=== PATIENT | male | born 1960 | race Two or more races ===

== ENCOUNTER 2018-01-22 15:35 | Inpatient (IN) | payer MEDICAID, OTHER ==
[~2018-01-22] VITALS: Ht 162.6 cm; Wt 60.1 kg
[2018-01-22 16:30] VITALS: BP 201/96
--- NOTE | 2018-01-22 16:55 | Diagnostic Imaging Report ---
Indication: Altered mental status Technique: Contiguous 5 mm thick transaxial imaging of the head obtained in a Siemens Sensation [address] scanner. Soft tissue and bone windows generated. Automatic Exposure Control was utilized. Total Dose length Product (DLP): 1463.[address] Dose Index Volume (CTDIvol): 70.38 mGy Comparison: none Findings: There is moderate prominence of the ventricles, basal cisterns, and cerebral sulci consistent with atrophy. Moderate, nonspecific, white matter hypoattenuation is noted throughout the brain consistent with chronic small vessel disease. There is no midline shift, edema, acute hemorrhage, mass effect, or abnormal extra-axial fluid collections. Bones and extra osseous soft tissues are unremarkable. Impression: No acute intracranial bleed, mass effect or edema. Moderate atrophy of the brain. Evidence of chronic small vessel disease involving white matter tracts. The CT scanner at [facility] is accredited by the [employer] and the scans are performed using dose optimization techniques as appropriate to a performed exam including Automatic Exposure control.
[2018-01-22 17:00] LABS: HEMATOCRIT 40.6 % (42.0-52.0); HEMOGLOBIN 13.6 G/DL (14.2-18.0); MEAN CORPUSCULAR VOLUME 86 FL (80-99); PLATELET COUNT 150 K/UL (150-450); RED BLOOD COUNT 4.73 M/UL (4.70-6.10); RED CELL DISTRIBUTION WIDTH 11.8 % (11.6-14.8); WHITE BLOOD COUNT 10.9 K/UL (4.8-10.8)
[2018-01-22 17:02] LABS: ANION GAP 19 mmol/L (5-15); BLOOD UREA NITROGEN 61 mg/dL (7-18); CALCIUM 9.7 MG/DL (8.5-10.1); CARBON DIOXIDE 19 MMOL/L (21-32); CHLORIDE 103 MMOL/L (98-107); CREATININE 3.9 MG/DL (0.55-1.30); SODIUM 141 MMOL/L (136-145)
[2018-01-22 17:04] LABS: APPEARANCE,URINE SLIGHTLY CLOUDY; BILIRUBIN, URINE NEGATIVE (NEGATIVE); COLOR,URINE PALE YELLOW; GLUCOSE, URINE (UA) 4+ (NEGATIVE); KETONES,URINE 1+ (NEGATIVE); LEUKOCYTE ESTERASE ,URINE NEGATIVE (NEGATIVE); NITRITE,URINE NEGATIVE (NEGATIVE); PH,URINE 5 (4.5-8.0); PROTEIN,URINE 3+ (NEGATIVE); UROBILINOGEN,URINE NORMAL MG/DL (0.0-1.0)
[2018-01-22 17:05] LABS: ALANINE AMINOTRANSFERASE 19 U/L (12-78); ALBUMIN 4.2 G/DL (3.4-5.0); ALBUMIN/GLOBULIN RATIO 0.8 (1.0-2.7); ALKALINE PHOSPHATASE 142 U/L (46-116); ASPARTATE AMINO TRANSFERASE 9 U/L (15-37); BILIRUBIN,TOTAL 0.7 MG/DL (0.2-1.0)
[2018-01-22 17:30] VITALS: BP 191/111
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
[2018-01-22 18:00] VITALS: BP 194/97
[2018-01-22 19:48] VITALS: BP 154/76
[2018-01-22] MEDS ORDERED: Insulin Human Regular 100units/ml 3ml IV ONE (20:00)
[2018-01-22 20:30] VITALS: BP 138/83
[2018-01-22] MEDS: NovoLOG Insulin Flexpen SUBQ SCH (21:52)
[2018-01-23] VITALS: BP 129/68
[2018-01-23 04:00] VITALS: BP 142/85
[2018-01-23] MEDS: NovoLOG Insulin Flexpen SUBQ SCH ×4 (05:38→23:11)
[2018-01-23 06:26] LABS: BASOPHILS % (AUTO) 0.8 % (0.0-2.0); EOSINOPHILS % (AUTO) 0.1 % (0.0-3.0); HEMATOCRIT 40.9 % (42.0-52.0); HEMOGLOBIN 13.6 G/DL (14.2-18.0); MEAN CORPUSCULAR VOLUME 86 FL (80-99); NEUTROPHILS % (AUTO) 77.1 % (45.0-75.0); PLATELET COUNT 240 K/UL (150-450); RED BLOOD COUNT 4.76 M/UL (4.70-6.10)
[2018-01-23 06:29] LABS: ANION GAP 15 mmol/L (5-15); BLOOD UREA NITROGEN 55 mg/dL (7-18); CALCIUM 9.4 MG/DL (8.5-10.1); CARBON DIOXIDE 25 MMOL/L (21-32); CHLORIDE 115 MMOL/L (98-107); SODIUM 155 MMOL/L (136-145)
[2018-01-23 08:00] VITALS: BP 164/100
[2018-01-23] MEDS: Thiamine 100mg tab ORAL SCH (08:45)
[2018-01-23] MEDS: chlordiazePOXIDE 25mg Cap ORAL SCH ×2 (10:05→16:56)
--- NOTE | 2018-01-23 11:56 | Diagnostic Imaging Report ---
Indication: Acute renal failure Technique: Grayscale and duplex images of the kidneys, retroperitoneum, and bladder were obtained. Comparison: none Findings: Right kidney measures 9.6 cm in length. Left kidney measures 10.1 cm in length. Both kidneys demonstrate normal echogenicity. No hydronephrosis. No focal abnormality. Normal inferior vena cava. Bladder is distended, prevoid volume 2 96 mL. Patient had no urge to void so no postvoid images available. Impression: negative.
[2018-01-23 12:00] VITALS: BP 163/96
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
--- NOTE | 2018-01-23 15:44 | Cardiology Report ---
APPROVED REPORT EKG Measurement Heart [id number] Normal sinus rhythm Left axis deviation Incomplete right bundle branch block Inferior infarct, age undetermined T wave abnormality, consider lateral ischemia Prolonged QT Abnormal ECG
[2018-01-23 16:00] VITALS: BP 159/96
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
[2018-01-23 20:00] VITALS: BP 145/94
[2018-01-24] VITALS: BP 137/86
[2018-01-24] MEDS: chlordiazePOXIDE 25mg Cap ORAL SCH ×3 (01:45→17:55)
[2018-01-24 04:00] VITALS: BP 138/56
[2018-01-24] MEDS: NovoLOG Insulin Flexpen SUBQ SCH ×4 (06:16→20:24)
[2018-01-24 07:53] LABS: ANION GAP 12 mmol/L (5-15); BLOOD UREA NITROGEN 52 mg/dL (7-18); CARBON DIOXIDE 25 MMOL/L (21-32); CHLORIDE 111 MMOL/L (98-107); CREATININE 2.6 MG/DL (0.55-1.30); EOSINOPHILS % (AUTO) 1.8 % (0.0-3.0); HEMATOCRIT 43.2 % (42.0-52.0); HEMOGLOBIN 13.9 G/DL (14.2-18.0); LYMPHOCYTES % (AUTO) 18.3 % (20.0-45.0); MEAN CORPUSCULAR VOLUME 88 FL (80-99); MONOCYTES % (AUTO) 5.3 % (1.0-10.0); NEUTROPHILS % (AUTO) 73.7 % (45.0-75.0); PLATELET COUNT 252 K/UL (150-450); RED BLOOD COUNT 4.93 M/UL (4.70-6.10); RED CELL DISTRIBUTION WIDTH 12.4 % (11.6-14.8); SODIUM 148 MMOL/L (136-145); WHITE BLOOD COUNT 13.8 K/UL (4.8-10.8)
[2018-01-24 08:00] VITALS: BP 118/69
--- NOTE | 2018-01-24 08:53 | Nephrology Progress Note ---
Assessment/Plan Assessment/Plan A/P 1) MUKUL on CKD??- Cr continues to improve with hydration - renal Us negative - avoid nephrotoxins 2) DM- elevated glucose per PCP 3) Hypernatremia- continue 1/2 NS hypotonic solution. Na has improved to 148 4) alcohol Dependancy- thiamine and folate Subjective Date patient seen: Jan 24, 2018 Time patient seen: 08:51 ROS Limited/Unobtainable: No Allergies: Coded Allergies: No Known Allergies (Unverified , 01/22/18) All Systems: reviewed and negative except above Subjective Patient says he is feeling better. No complaints Objective Last 24 Hour Vital Signs Date Time Temp Pulse Resp B/P (MAP) Pulse Ox O2 Delivery O2 Flow Rate FiO2 01/24/18 08:00 96.3 91 19 118/69 (85) 100 96.3 01/24/18 04:00 78 01/24/18 04:00 98.2 75 20 138/56 (83) 98 98.2 01/24/18 00:00 98.1 87 16 137/86 (103) 99 98.1 01/24/18 00:00 67 01/23/18 21:00 Room Air 01/23/18 20:00 83 01/23/18 20:00 98.2 84 19 145/94 (111) 99 98.2 01/23/18 16:56 159/96 01/23/18 16:00 71 01/23/18 16:00 97.7 86 20 159/96 (117) 97 97.7 01/23/18 12:00 85 01/23/18 12:00 97.7 84 20 163/96 (118) 97 97.7 01/23/18 09:00 Room Air Intake and Output 01/23/18 01/24/18 19:00 07:00 Intake Total 360 ml Balance 360 ml Intake Oral 360 ml # Voids 2 2 Laboratory Tests 01/24/18 07:15: White Blood Count 13.8H, Red Blood Count 4.93, Hemoglobin 13.9L, Hematocrit 43.2 , Mean Corpuscular Volume 88, Mean Corpuscular Hemoglobin 28.2, Mean Corpuscular Hemoglobin Concent 32.2, Red Cell Distribution Width 12.4, Platelet Count 252, Mean Platelet Volume 7.5, Neutrophils (%) (Auto) 73.7, Lymphocytes (% ) (Auto) 18.3L, Monocytes (%) (Auto) 5.3, Eosinophils (%) (Auto) 1.8, Basophils (%) (Auto) 1.0, Sodium Level 148H, Potassium Level 4.0, Chloride Level 111H, Carbon Dioxide Level 25, Anion Gap 12, Blood Urea Nitrogen 52H, Creatinine 2.6H , Estimat Glomerular Filtration Rate 25.7, Glucose Level 320H, Calcium Level 9.0 Height (Feet): 5 Height (Inches): 4.00 Weight (Pounds): 150 General Appearance: WD/WN, no apparent distress EENT: PERRL/EOMI Neck: non-tender, normal alignment Cardiovascular: normal peripheral pulses, normal rate Respiratory/Chest: lungs clear, normal breath sounds Abdomen: normal bowel sounds, non tender Edema: no edema noted Arm (L), no edema noted Arm (R), no edema noted Leg (L), no edema noted Leg (R), no edema noted Pedal (L), no edema noted Pedal (R), no edema noted Generalized Aleksey Oconnor MD Jan 24, 2018 08:53
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
[2018-01-24] MEDS: Thiamine 100mg tab ORAL SCH (09:31)
[2018-01-24 12:00] VITALS: BP 148/91
[2018-01-24 16:00] VITALS: BP 131/87
[2018-01-24 20:00] VITALS: BP 136/80
[2018-01-25] VITALS: BP 108/55
[2018-01-25] MEDS: chlordiazePOXIDE 25mg Cap ORAL SCH ×3 (01:02→16:51)
[2018-01-25 04:00] VITALS: BP 117/58
[2018-01-25] MEDS: NovoLOG Insulin Flexpen SUBQ SCH ×4 (06:13→20:29)
[2018-01-25 08:00] VITALS: BP 117/65
[2018-01-25] MEDS: Thiamine 100mg tab ORAL SCH (08:37)
--- NOTE | 2018-01-25 08:41 | Nephrology Progress Note ---
Assessment/Plan Assessment/Plan A/P 1) MUKUL on CKD??- Cr improving. AM labs pending. OK for DC from renal point pending am lab results - renal Us negative 2) DM- improved. Stable 3) Hypernatremia- continue 1/2 NS hypotonic solution. AM labs pending 4) alcohol Dependancy- thiamine and folate Subjective Date patient seen: Jan 25, 2018 Time patient seen: 08:38 ROS Limited/Unobtainable: No Allergies: Coded Allergies: No Known Allergies (Unverified , 01/22/18) All Systems: reviewed and negative except above Subjective Patient says he is feeling better. Objective Last 24 Hour Vital Signs Date Time Temp Pulse Resp B/P (MAP) Pulse Ox O2 Delivery O2 Flow Rate FiO2 01/25/18 04:00 97.6 80 17 117/58 (77) 97 97.6 01/25/18 00:00 98.1 76 18 108/55 (72) 96 98.1 01/24/18 21:00 Room Air 01/24/18 20:00 97.6 82 19 136/80 (98) 99 97.6 01/24/18 16:00 98.1 91 18 131/87 (102) 97 98.1 01/24/18 12:00 97.4 73 19 148/91 (110) 99 97.4 Intake and Output 01/24/18 01/25/18 19:00 07:00 Intake Total 375 ml Balance 375 ml IV Total 375 ml # Voids 3 2 # Bowel Movements 2 1 Height (Feet): 5 Height (Inches): 4.00 Weight (Pounds): 150 General Appearance: WD/WN, no apparent distress Neck: non-tender, normal alignment Cardiovascular: normal rate, regular rhythm Respiratory/Chest: lungs clear, normal breath sounds Abdomen: non tender, soft Edema: no edema noted Arm (L), no edema noted Arm (R), no edema noted Leg (L), no edema noted Leg (R), no edema noted Pedal (L), no edema noted Pedal (R), no edema noted Generalized Aleksey Oconnor MD Jan 25, 2018 08:41
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
[2018-01-25 09:14] LABS: BASOPHILS % (AUTO) 0.8 % (0.0-2.0); EOSINOPHILS % (AUTO) 2.9 % (0.0-3.0); HEMATOCRIT 39.6 % (42.0-52.0); HEMOGLOBIN 12.9 G/DL (14.2-18.0); LYMPHOCYTES % (AUTO) 16.4 % (20.0-45.0); MEAN CORPUSCULAR VOLUME 87 FL (80-99); MONOCYTES % (AUTO) 5.2 % (1.0-10.0); NEUTROPHILS % (AUTO) 74.6 % (45.0-75.0); PLATELET COUNT 223 K/UL (150-450); RED BLOOD COUNT 4.57 M/UL (4.70-6.10); WHITE BLOOD COUNT 11.4 K/UL (4.8-10.8)
[2018-01-25 09:29] LABS: ANION GAP 7 mmol/L (5-15); BLOOD UREA NITROGEN 45 mg/dL (7-18); CALCIUM 8.7 MG/DL (8.5-10.1); CARBON DIOXIDE 26 MMOL/L (21-32); CHLORIDE 105 MMOL/L (98-107); CREATININE 2.4 MG/DL (0.55-1.30); PHOSPHORUS 2.3 MG/DL (2.5-4.9); POTASSIUM 3.9 MMOL/L (3.5-5.1); SODIUM 138 MMOL/L (136-145)
[2018-01-25 12:00] VITALS: BP 128/71
[2018-01-25 16:00] VITALS: BP 121/69
[2018-01-25 20:00] VITALS: BP 141/83
[2018-01-26] MEDS: chlordiazePOXIDE 25mg Cap ORAL SCH ×3 (01:45→17:09)
[2018-01-26 04:00] VITALS: BP 112/56
[2018-01-26] MEDS: NovoLOG Insulin Flexpen SUBQ SCH ×4 (06:22→21:52)
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
[2018-01-26] MEDS: Thiamine 100mg tab ORAL SCH (07:59)
[2018-01-26 08:00] VITALS: BP 139/79
--- NOTE | 2018-01-26 08:31 | Nephrology Progress Note ---
Assessment/Plan Assessment/Plan A/P 1) MUKUL on CKD??- Cr improving down to 2.4 - renal Us negative - OK for DC from renal point 2) DM- improved. Stable 3) Hypernatremia- resolved, DC IVFs 4) alcohol Dependancy- thiamine and folate 5) HypoMg/Phos- being replaced today Subjective Date patient seen: Jan 26, 2018 Time patient seen: 08:30 ROS Limited/Unobtainable: No Allergies: Coded Allergies: No Known Allergies (Unverified , 01/22/18) All Systems: reviewed and negative except above Subjective Patient without complaints resting well Objective Last 24 Hour Vital Signs Date Time Temp Pulse Resp B/P (MAP) Pulse Ox O2 Delivery O2 Flow Rate FiO2 01/26/18 04:00 112/56 (74) 01/25/18 21:00 Room Air 01/25/18 20:00 97.9 89 19 141/83 (102) 98 97.9 01/25/18 16:00 97.8 72 121/69 (86) 97.8 01/25/18 12:00 98.1 84 18 128/71 (90) 98 98.1 01/25/18 09:00 Room Air Intake and Output 01/25/18 01/26/18 19:00 07:00 Intake Total 1150 ml 120 ml Balance 1150 ml 120 ml Intake Oral 120 ml IV Total 600 ml Other 550 ml # Voids 3 2 Laboratory Tests 01/25/18 09:00: White Blood Count 11.4H, Red Blood Count 4.57L, Hemoglobin 12.9L, Hematocrit 39.6L, Mean Corpuscular Volume 87, Mean Corpuscular Hemoglobin 28.1, Mean Corpuscular Hemoglobin Concent 32.5, Red Cell Distribution Width 12.0, Platelet Count 223, Mean Platelet Volume 6.3L, Neutrophils (%) (Auto) 74.6, Lymphocytes ( %) (Auto) 16.4L, Monocytes (%) (Auto) 5.2, Eosinophils (%) (Auto) 2.9, Basophils (%) (Auto) 0.8, Sodium Level 138, Potassium Level 3.9, Chloride Level 105, Carbon Dioxide Level 26, Anion Gap 7, Blood Urea Nitrogen 45H, Creatinine 2.4H, Estimat Glomerular Filtration Rate 28.1, Glucose Level 324H, Calcium Level 8.7, Phosphorus Level 2.3L, Magnesium Level 1.7L Height (Feet): 5 Height (Inches): 4.00 Weight (Pounds): 150 General Appearance: WD/WN, no apparent distress EENT: PERRL/EOMI Neck: non-tender, normal alignment Cardiovascular: normal rate, regular rhythm Respiratory/Chest: lungs clear, normal breath sounds Abdomen: non tender, soft Edema: no edema noted Arm (L), no edema noted Arm (R), no edema noted Leg (L), no edema noted Leg (R), no edema noted Pedal (L), no edema noted Pedal (R), no edema noted Generalized Aleksey Oconnor MD Jan 26, 2018 08:31
[2018-01-26 09:44] LABS: ANION GAP 10 mmol/L (5-15); BLOOD UREA NITROGEN 52 mg/dL (7-18); CALCIUM 8.5 MG/DL (8.5-10.1); CARBON DIOXIDE 23 MMOL/L (21-32); CHLORIDE 105 MMOL/L (98-107); CREATININE 2.4 MG/DL (0.55-1.30); POTASSIUM 4.3 MMOL/L (3.5-5.1); SODIUM 138 MMOL/L (136-145)
[2018-01-26] MEDS ORDERED: Sodium Phosphate 15 MM in NS 275 ML IVPB ONE (10:00)
[2018-01-26] MEDS: Magnesium Oxide 400mg tab ORAL SCH ×3 (10:23→17:09)
[2018-01-26 12:00] VITALS: BP 140/80
[2018-01-26 16:00] VITALS: BP 129/76
[2018-01-26 20:00] VITALS: BP 130/81
[2018-01-26] MEDS: Zolpidem 5mg tab ORAL PRN (21:51)
[2018-01-27] VITALS: BP 128/74
[2018-01-27] MEDS: chlordiazePOXIDE 25mg Cap ORAL SCH ×3 (01:44→17:14)
[2018-01-27 04:00] VITALS: BP 143/82
[2018-01-27] MEDS: NovoLOG Insulin Flexpen SUBQ SCH ×4 (06:21→20:41)
[2018-01-27 08:00] VITALS: BP 121/73
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
[2018-01-27 08:25] LABS: CHLORIDE 104 MMOL/L (98-107)
[2018-01-27 08:27] LABS: ANION GAP 11 mmol/L (5-15); BLOOD UREA NITROGEN 52 mg/dL (7-18); CARBON DIOXIDE 26 MMOL/L (21-32); CREATININE 2.2 MG/DL (0.55-1.30); POTASSIUM 4.2 MMOL/L (3.5-5.1); SODIUM 141 MMOL/L (136-145)
[2018-01-27] MEDS: Magnesium Oxide 400mg tab ORAL SCH ×3 (08:39→17:14)
[2018-01-27] MEDS: Thiamine 100mg tab ORAL SCH (08:39)
--- NOTE | 2018-01-27 09:07 | Nephrology Progress Note ---
Assessment/Plan Assessment/Plan A/P 1) MUKUL on CKD 4- Cr slowly improving. Cr down to 2.2 - OK for DC from renal point 2) DM- improved. Stable 3) Hypernatremia- resolved 4) alcohol Dependancy- thiamine and folate 5) HypoMg/Phos- being replaced prn Subjective Date patient seen: Jan 27, 2018 Time patient seen: 09:02 ROS Limited/Unobtainable: No Allergies: Coded Allergies: No Known Allergies (Unverified , 01/22/18) All Systems: reviewed and negative except above Subjective Patient sitting up in bed. No overt distress Objective Last 24 Hour Vital Signs Date Time Temp Pulse Resp B/P (MAP) Pulse Ox O2 Delivery O2 Flow Rate FiO2 01/27/18 08:00 98.0 82 22 121/73 (89) 99 98.0 01/27/18 04:00 97.8 78 19 143/82 (102) 98 97.8 01/27/18 00:00 97.9 68 18 128/74 (92) 96 97.9 01/26/18 21:00 Room Air 01/26/18 20:00 98.6 85 18 130/81 (97) 100 98.6 01/26/18 16:00 98.6 85 18 129/76 (93) 97 98.6 01/26/18 12:00 98.0 81 19 140/80 (100) 100 98.0 Intake and Output 01/26/18 01/27/18 19:00 07:00 Intake Total 450 ml Balance 450 ml Intake Oral 450 ml # Voids 2 4 # Bowel Movements 3 Laboratory Tests 01/27/18 06:00: Sodium Level 141, Potassium Level 4.2, Chloride Level 104, Carbon Dioxide Level 26, Anion Gap 11, Blood Urea Nitrogen 52H, Creatinine 2.2H, Estimat Glomerular Filtration Rate 31.1, Glucose Level 269#H, Calcium Level 9.0 Height (Feet): 5 Height (Inches): 4.00 Weight (Pounds): 150 General Appearance: WD/WN, no apparent distress EENT: normal ENT inspection Neck: normal alignment, supple Cardiovascular: normal rate, regular rhythm Respiratory/Chest: lungs clear, normal breath sounds Abdomen: non tender, soft Edema: no edema noted Arm (L), no edema noted Arm (R), no edema noted Leg (L), no edema noted Leg (R), no edema noted Pedal (L), no edema noted Pedal (R), no edema noted Generalized Aleksey Oconnor MD Jan 27, 2018 09:07
[2018-01-27 12:00] VITALS: BP 146/67
[2018-01-27 16:00] VITALS: BP 138/85
[2018-01-27 20:00] VITALS: BP 133/89
[2018-01-27] MEDS: Zolpidem 5mg tab ORAL PRN (20:40)
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
[2018-01-28] VITALS: BP 111/64
[2018-01-28] MEDS: chlordiazePOXIDE 25mg Cap ORAL SCH ×3 (01:24→16:57)
[2018-01-28 04:00] VITALS: BP 145/86
[2018-01-28] MEDS: NovoLOG Insulin Flexpen SUBQ SCH ×4 (06:13→20:40)
[2018-01-28 07:55] LABS: ANION GAP 9 mmol/L (5-15); BLOOD UREA NITROGEN 49 mg/dL (7-18); CALCIUM 8.9 MG/DL (8.5-10.1); CARBON DIOXIDE 23 MMOL/L (21-32); CHLORIDE 105 MMOL/L (98-107); POTASSIUM 4.3 MMOL/L (3.5-5.1); SODIUM 137 MMOL/L (136-145)
[2018-01-28 08:04] VITALS: BP 125/78
[2018-01-28] MEDS: Magnesium Oxide 400mg tab ORAL SCH ×3 (08:08→16:57)
[2018-01-28] MEDS: Thiamine 100mg tab ORAL SCH (08:08)
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
--- NOTE | 2018-01-28 08:59 | Nephrology Progress Note ---
Assessment/Plan Assessment/Plan A/P 1) MUKUL on CKD 4- Cr slowly improving to 2 and BUN 49 - OK for DC from renal point 2) DM- improved. 3) Hypernatremia- resolved 4) Alcohol Dependancy- thiamine and folate 5) HypoMg/Phos- corrected Subjective Date patient seen: Jan 28, 2018 Time patient seen: 08:57 ROS Limited/Unobtainable: No Allergies: Coded Allergies: No Known Allergies (Unverified , 01/22/18) All Systems: reviewed and negative except above Subjective Patient without complaints Objective Last 24 Hour Vital Signs Date Time Temp Pulse Resp B/P (MAP) Pulse Ox O2 Delivery O2 Flow Rate FiO2 01/28/18 08:04 98.6 69 18 125/78 (94) 96 98.6 01/28/18 04:00 97.5 81 19 145/86 (105) 97 97.5 01/28/18 00:00 97.9 79 18 111/64 (80) 97 97.9 01/27/18 21:00 Room Air 01/27/18 20:00 97.9 82 19 133/89 (104) 98 97.9 01/27/18 16:00 96.6 72 21 138/85 (102) 97 96.6 01/27/18 12:00 97.7 77 22 146/67 (93) 99 97.7 01/27/18 09:00 Room Air Intake and Output 01/27/18 01/28/18 19:00 07:00 Intake Total 1440 ml 480 ml Balance 1440 ml 480 ml Intake Oral 1440 ml 480 ml # Voids 5 3 Laboratory Tests 01/28/18 06:54: Sodium Level 137, Potassium Level 4.3, Chloride Level 105, Carbon Dioxide Level 23, Anion Gap 9, Blood Urea Nitrogen 49H, Creatinine 2.0H, Estimat Glomerular Filtration Rate 34.7, Glucose Level 277H, Calcium Level 8.9, Magnesium Level 1.9 Height (Feet): 5 Height (Inches): 4.00 Weight (Pounds): 150 General Appearance: WD/WN, no apparent distress EENT: PERRL/EOMI, normal ENT inspection Cardiovascular: normal rate, regular rhythm Respiratory/Chest: lungs clear, normal breath sounds Abdomen: non tender, soft Edema: no edema noted Arm (L), no edema noted Arm (R), no edema noted Leg (L), no edema noted Leg (R), no edema noted Pedal (L), no edema noted Pedal (R), no edema noted Generalized Aleksey Oconnor MD Jan 28, 2018 08:59
[2018-01-28 11:23] VITALS: BP 122/85
[2018-01-28 16:00] VITALS: BP 154/92
[2018-01-28 20:00] VITALS: BP 147/84
[2018-01-29] VITALS: BP 137/71
[2018-01-29] MEDS: chlordiazePOXIDE 25mg Cap ORAL SCH ×3 (01:41→17:51)
[2018-01-29] MEDS: Zolpidem 5mg tab ORAL PRN (01:41)
[2018-01-29 04:00] VITALS: BP 126/75
[2018-01-29] MEDS: NovoLOG Insulin Flexpen SUBQ SCH ×4 (06:20→21:43)
[2018-01-29 08:00] VITALS: BP 124/76
[2018-01-29] MEDS: Magnesium Oxide 400mg tab ORAL SCH ×3 (08:42→17:51)
[2018-01-29] MEDS: Thiamine 100mg tab ORAL SCH (08:42)
--- NOTE | 2018-01-29 08:43 | Nephrology Progress Note ---
Assessment/Plan Assessment/Plan A/P 1) MUKUL on CKD 4- Cr 2 and BUN 49 - AM labs pending 2) DM- improved. 3) Hypernatremia- resolved 4) Alcohol Dependancy- thiamine and folate 5) HypoMg/Phos- am labs pending Subjective Date patient seen: Jan 29, 2018 Time patient seen: 08:41 ROS Limited/Unobtainable: No Allergies: Coded Allergies: No Known Allergies (Unverified , 01/22/18) All Systems: reviewed and negative except above Subjective Patient without complaints, sleeping well Objective Last 24 Hour Vital Signs Date Time Temp Pulse Resp B/P (MAP) Pulse Ox O2 Delivery O2 Flow Rate FiO2 01/29/18 04:00 97.9 82 18 126/75 (92) 97.9 01/29/18 00:00 97.7 79 18 137/71 (93) 97.7 01/28/18 21:00 Room Air 01/28/18 20:00 97.0 85 18 147/84 (105) 97.0 01/28/18 16:23 154/92 01/28/18 16:00 96.6 78 18 154/92 (112) 100 96.6 01/28/18 11:23 97.8 85 18 122/85 (97) 96 97.8 01/28/18 09:00 Room Air Intake and Output 01/28/18 01/29/18 19:00 07:00 Intake Total 360 ml 240 ml Balance 360 ml 240 ml Intake Oral 360 ml 240 ml # Voids 2 5 Laboratory Tests 01/29/18 08:10: Sodium Level [Pending], Potassium Level [Pending], Chloride Level [Pending], Carbon Dioxide Level [Pending], Blood Urea Nitrogen [Pending], Creatinine [ Pending], Estimat Glomerular Filtration Rate [Pending], Glucose Level [Pending] , Calcium Level [Pending] Height (Feet): 5 Height (Inches): 4.00 Weight (Pounds): 150 General Appearance: WD/WN, no apparent distress EENT: normal ENT inspection Neck: normal alignment, supple Cardiovascular: normal rate, regular rhythm Respiratory/Chest: lungs clear, normal breath sounds Abdomen: non tender, soft Edema: no edema noted Arm (L), no edema noted Arm (R), no edema noted Leg (L), no edema noted Leg (R), no edema noted Pedal (L), no edema noted Pedal (R), no edema noted Generalized Aleksey Oconnor MD Jan 29, 2018 08:43
[2018-01-29 09:12] LABS: ANION GAP 8 mmol/L (5-15); BLOOD UREA NITROGEN 43 mg/dL (7-18); CALCIUM 9.1 MG/DL (8.5-10.1); CARBON DIOXIDE 25 MMOL/L (21-32); CHLORIDE 106 MMOL/L (98-107); CREATININE 2.3 MG/DL (0.55-1.30); POTASSIUM 4.2 MMOL/L (3.5-5.1); SODIUM 139 MMOL/L (136-145)
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
[2018-01-29 11:48] VITALS: BP 141/83
[2018-01-29 16:10] VITALS: BP 121/74
[2018-01-29 20:00] VITALS: BP 126/79
[2018-01-30] VITALS (7 sets, daily range): BP systolic 87–166; BP diastolic 56–94
[2018-01-30] MEDS: chlordiazePOXIDE 25mg Cap ORAL SCH ×3 (01:45→01:51)
[2018-01-30] MEDS: NovoLOG Insulin Flexpen SUBQ SCH ×4 (06:22→20:44)
[2018-01-30 07:11] LABS: ANION GAP 5 mmol/L (5-15); BLOOD UREA NITROGEN 38 mg/dL (7-18); CALCIUM 8.9 MG/DL (8.5-10.1); CARBON DIOXIDE 28 MMOL/L (21-32); CHLORIDE 105 MMOL/L (98-107); POTASSIUM 4.5 MMOL/L (3.5-5.1); SODIUM 138 MMOL/L (136-145)
--- NOTE | 2018-01-30 08:11 | Nephrology Progress Note ---
Assessment/Plan Assessment/Plan A/P 1) CKD 4- Cr stable at 2 - OK for DC from renal point 2) DM- stable 3) Hypernatremia- resolved 4) Alcohol Dependancy- thiamine and folate 5) HypoMg/Phos- resolved Subjective Date patient seen: Jan 30, 2018 Time patient seen: 08:09 ROS Limited/Unobtainable: No Allergies: Coded Allergies: No Known Allergies (Unverified , 01/22/18) All Systems: reviewed and negative except above Subjective Patient doing well. No distress Objective Last 24 Hour Vital Signs Date Time Temp Pulse Resp B/P (MAP) Pulse Ox O2 Delivery O2 Flow Rate FiO2 01/30/18 04:00 97.3 73 14 118/64 (82) 97 97.3 01/30/18 01:00 126/75 (92) 01/30/18 00:29 166/88 01/30/18 00:15 16 166/88 (114) 01/30/18 00:00 98.6 83 14 149/78 (101) 97 98.6 01/29/18 21:00 Room Air 01/29/18 20:00 97.7 89 15 126/79 (95) 95 97.7 01/29/18 16:10 97.8 86 18 121/74 (90) 97.8 01/29/18 11:48 96.4 77 18 141/83 (102) 99 96.4 01/29/18 09:00 Room Air Intake and Output 01/29/18 01/30/18 19:00 07:00 Intake Total 830 ml 30 ml Balance 830 ml 30 ml Intake Oral 480 ml Other 350 ml 30 ml # Voids 4 4 # Bowel Movements 1 Laboratory Tests 01/29/18 08:10: Sodium Level 139, Potassium Level 4.2, Chloride Level 106, Carbon Dioxide Level 25, Anion Gap 8, Blood Urea Nitrogen 43H, Creatinine 2.3H, Estimat Glomerular Filtration Rate 29.6, Glucose Level 289H, Calcium Level 9.1 01/30/18 06:05: Sodium Level 138, Potassium Level 4.5, Chloride Level 105, Carbon Dioxide Level 28, Anion Gap 5, Blood Urea Nitrogen 38H, Creatinine 2.0H, Estimat Glomerular Filtration Rate 34.7, Glucose Level 330H, Calcium Level 8.9 Height (Feet): 5 Height (Inches): 4.00 Weight (Pounds): 150 General Appearance: WD/WN, no apparent distress EENT: normal ENT inspection Neck: normal alignment, supple Cardiovascular: normal rate, regular rhythm Respiratory/Chest: lungs clear, normal breath sounds Abdomen: non tender, soft Edema: no edema noted Arm (L), no edema noted Arm (R), no edema noted Leg (L), no edema noted Leg (R), no edema noted Pedal (L), no edema noted Pedal (R), no edema noted Generalized Aleksey Oconnor MD Jan 30, 2018 08:11
[2018-01-30] MEDS: Magnesium Oxide 400mg tab ORAL SCH ×3 (08:18→18:24)
[2018-01-30] MEDS: Thiamine 100mg tab ORAL SCH (08:18)
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
--- NOTE | 2018-01-30 11:46 | General Progress Note ---
Assessment/Plan Status: stable Assessment/Plan encephalopathy due to alcohol Dementia the pt lacks capacity to leave ama cont librium will taper gradually prozac 20mg qam the pt lacks capacity to leave ama seroquel prn Subjective Date patient seen: Jan 30, 2018 Neurologic/Psychiatric: Reports: anxiety Allergies: Coded Allergies: No Known Allergies (Unverified , 01/22/18) Subjective the pt is confused and follows simple tasks Objective Last 24 Hour Vital Signs Date Time Temp Pulse Resp B/P (MAP) Pulse Ox O2 Delivery O2 Flow Rate FiO2 01/30/18 09:00 Room Air 01/30/18 08:00 97.9 85 16 87/56 (66) 100 97.9 01/30/18 04:00 97.3 73 14 118/64 (82) 97 97.3 01/30/18 01:00 126/75 (92) 01/30/18 00:29 166/88 01/30/18 00:15 16 166/88 (114) 01/30/18 00:00 98.6 83 14 149/78 (101) 97 98.6 01/29/18 21:00 Room Air 01/29/18 20:00 97.7 89 15 126/79 (95) 95 97.7 01/29/18 16:10 97.8 86 18 121/74 (90) 97.8 01/29/18 11:48 96.4 77 18 141/83 (102) 99 96.4 Intake and Output 01/29/18 01/30/18 19:00 07:00 Intake Total 830 ml 30 ml Balance 830 ml 30 ml Intake Oral 480 ml Other 350 ml 30 ml # Voids 4 4 # Bowel Movements 1 Laboratory Tests 01/30/18 06:05: Sodium Level 138, Potassium Level 4.5, Chloride Level 105, Carbon Dioxide Level 28, Anion Gap 5, Blood Urea Nitrogen 38H, Creatinine 2.0H, Estimat Glomerular Filtration Rate 34.7, Glucose Level 330H, Calcium Level 8.9 Height (Feet): 5 Height (Inches): 4.00 Weight (Pounds): 150 General Appearance: no apparent distress, alert, confused Josephine Blackwell MD Jan 30, 2018 11:46
--- NOTE | 2018-01-30 12:20 | General Progress Note ---
Progress Note Progress Note Mr. Rodgers is a 57 yo male, homeless, confused and hyperglycemic prompting his admission. He is not represented. The Committee is asked if it appropriate for him to be designated a hospice patient and sent to a snf. Mr. Rodgers while fragile due to his homeless status he does not have a terminal diagnosis with survival estimated to be less than 6 months. We do not feel it would be appropriate for him to be designated as having hospice status. Some other solution to his placement should be sought. Vasquez Sotelo M.D. Bioethics Chair Vasquez Sotelo MD Jan 30, 2018 12:20
[2018-01-30] MEDS: Zolpidem 5mg tab ORAL PRN (20:41)
[2018-01-31 04:00] VITALS: BP 145/93
[2018-01-31] MEDS: NovoLOG Insulin Flexpen SUBQ SCH ×5 (05:50→20:37)
[2018-01-31 06:45] LABS: ANION GAP 7 mmol/L (5-15); BLOOD UREA NITROGEN 32 mg/dL (7-18); CALCIUM 9.2 MG/DL (8.5-10.1); CARBON DIOXIDE 29 MMOL/L (21-32); CHLORIDE 106 MMOL/L (98-107); CREATININE 1.8 MG/DL (0.55-1.30); POTASSIUM 4.4 MMOL/L (3.5-5.1); SODIUM 142 MMOL/L (136-145)
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
[2018-01-31 08:00] VITALS: BP 109/67
[2018-01-31] MEDS: Thiamine 100mg tab ORAL SCH (08:08)
[2018-01-31] MEDS: Magnesium Oxide 400mg tab ORAL SCH ×3 (08:08→17:18)
--- NOTE | 2018-01-31 08:30 | Nephrology Progress Note ---
Assessment/Plan Assessment/Plan A/P 1) CKD 4- Cr down to 1.8 - PRN IVfs 2) DM- stable 3) Hypernatremia- resolved 4) Alcohol Dependancy- thiamine and folate Pending DC placement Subjective Date patient seen: Jan 31, 2018 Time patient seen: 08:29 ROS Limited/Unobtainable: Yes Allergies: Coded Allergies: No Known Allergies (Unverified , 01/22/18) Subjective Patient doing well. Much improved Objective Last 24 Hour Vital Signs Date Time Temp Pulse Resp B/P (MAP) Pulse Ox O2 Delivery O2 Flow Rate FiO2 01/31/18 04:00 97.0 76 20 145/93 (110) 100 97.0 01/30/18 21:00 Room Air 01/30/18 20:00 97.0 71 20 139/94 (109) 100 97.0 01/30/18 16:00 97.0 72 129/63 (85) 97.0 01/30/18 09:00 Room Air Intake and Output 01/30/18 01/31/18 19:00 07:00 Intake Total 1000 ml Balance 1000 ml Intake Oral 1000 ml # Voids 6 3 # Bowel Movements 1 Laboratory Tests 01/31/18 06:00: Sodium Level 142, Potassium Level 4.4, Chloride Level 106, Carbon Dioxide Level 29, Anion Gap 7, Blood Urea Nitrogen 32H, Creatinine 1.8H, Estimat Glomerular Filtration Rate 39.2, Glucose Level 186#H, Calcium Level 9.2 Height (Feet): 5 Height (Inches): 4.00 Weight (Pounds): 145 General Appearance: WD/WN, no apparent distress EENT: normal ENT inspection Neck: normal alignment, supple Cardiovascular: normal rate, regular rhythm Respiratory/Chest: lungs clear, normal breath sounds Abdomen: non tender, soft Pelvis: normal rectal exam, speculum exam normal Edema: no edema noted Arm (L), no edema noted Arm (R), no edema noted Leg (L), no edema noted Leg (R), no edema noted Pedal (L), no edema noted Pedal (R), no edema noted Generalized Aleksey Oconnor MD Jan 31, 2018 08:30
[2018-01-31 12:00] VITALS: BP_SYST 109; BP_SYST 126; BP_DIAS 55; BP_DIAS 86
[2018-01-31 16:00] VITALS: BP 123/76
[2018-01-31 20:00] VITALS: BP 146/83
--- NOTE | 2018-01-31 23:15 | General Progress Note ---
Assessment/Plan Status: stable, progressing Assessment/Plan encephalopathy due to alcohol Dementia the pt lacks capacity to leave ama cont librium will taper gradually prozac 20mg qam the pt lacks capacity to leave ama seroquel prn Subjective Date patient seen: Jan 31, 2018 Neurologic/Psychiatric: Reports: anxiety, depressed Allergies: Coded Allergies: No Known Allergies (Unverified , 01/22/18) Subjective the pt is confused and follows simple tasks the pt is calmer and not agitated Objective Last 24 Hour Vital Signs Date Time Temp Pulse Resp B/P (MAP) Pulse Ox O2 Delivery O2 Flow Rate FiO2 01/31/18 21:00 Room Air 01/31/18 20:00 97.7 81 19 146/83 (104) 97 97.7 01/31/18 16:00 97.6 87 20 123/76 (92) 99 97.6 01/31/18 12:00 97.7 83 18 126/86 (99) 95 97.7 01/31/18 09:00 Room Air 01/31/18 08:00 97.5 86 18 109/67 (81) 99 97.5 01/31/18 04:00 97.0 76 20 145/93 (110) 100 97.0 Intake and Output 01/30/18 01/31/18 19:00 07:00 Intake Total 1000 ml Balance 1000 ml Intake Oral 1000 ml # Voids 6 3 # Bowel Movements 1 Laboratory Tests 01/31/18 06:00: Sodium Level 142, Potassium Level 4.4, Chloride Level 106, Carbon Dioxide Level 29, Anion Gap 7, Blood Urea Nitrogen 32H, Creatinine 1.8H, Estimat Glomerular Filtration Rate 39.2, Glucose Level 186#H, Calcium Level 9.2 Height (Feet): 5 Height (Inches): 4.00 Weight (Pounds): 145 General Appearance: no apparent distress, alert, confused Josephine Blackwell MD Jan 31, 2018 23:15
[2018-02-01] VITALS: BP_SYST 133; BP_SYST 140; BP_DIAS 80; BP_DIAS 85
[2018-02-01] MEDS: NovoLOG Insulin Flexpen SUBQ SCH ×4 (06:41→21:08)
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
[2018-02-01 08:00] VITALS: BP 134/79
--- NOTE | 2018-02-01 08:46 | Nephrology Progress Note ---
Assessment/Plan Assessment/Plan A/P 1) CKD 4- Cr down to 1.8 - renal function stable. Check BMP 2x week 2) DM- stable 3) Hypernatremia- resolved 4) Alcohol Dependancy- thiamine and folate Pending DC placement Subjective Date patient seen: Feb 01, 2018 Time patient seen: 08:44 Allergies: Coded Allergies: No Known Allergies (Unverified , 01/22/18) Subjective Patient stable Objective Last 24 Hour Vital Signs Date Time Temp Pulse Resp B/P (MAP) Pulse Ox O2 Delivery O2 Flow Rate FiO2 02/01/18 04:00 18 02/01/18 00:00 97.6 82 20 133/85 (101) 96 97.6 01/31/18 21:00 Room Air 01/31/18 20:00 97.7 81 19 146/83 (104) 97 97.7 01/31/18 16:00 97.6 87 20 123/76 (92) 99 97.6 01/31/18 12:00 97.7 83 18 126/86 (99) 95 97.7 01/31/18 09:00 Room Air Intake and Output 01/31/18 02/01/18 19:00 07:00 Intake Total 480 ml 240 ml Balance 480 ml 240 ml Intake Oral 480 ml 240 ml # Voids 2 2 Height (Feet): 5 Height (Inches): 4.00 Weight (Pounds): 145 Aleksey Oconnor MD Feb 01, 2018 08:46
[2018-02-01] MEDS: Magnesium Oxide 400mg tab ORAL SCH ×3 (08:51→18:17)
[2018-02-01] MEDS: Thiamine 100mg tab ORAL SCH (08:51)
[2018-02-01 12:00] VITALS: BP 141/85
--- NOTE | 2018-02-01 12:02 | General Progress Note ---
Assessment/Plan Assessment/Plan encephalopathy due to alcohol Dementia the pt lacks capacity to leave ama seroquel 25mg tid the pt lacks capacity to leave ama seroquel prn Subjective Neurologic/Psychiatric: Reports: anxiety, depressed, emotional problems Allergies: Coded Allergies: No Known Allergies (Unverified , 01/22/18) Subjective the pt is confused and more agitated Objective Last 24 Hour Vital Signs Date Time Temp Pulse Resp B/P (MAP) Pulse Ox O2 Delivery O2 Flow Rate FiO2 02/01/18 09:00 Room Air 02/01/18 08:00 98.1 90 20 134/79 (97) 100 98.1 02/01/18 04:00 18 02/01/18 00:00 97.6 82 20 133/85 (101) 96 97.6 01/31/18 21:00 Room Air 01/31/18 20:00 97.7 81 19 146/83 (104) 97 97.7 01/31/18 16:00 97.6 87 20 123/76 (92) 99 97.6 Intake and Output 01/31/18 02/01/18 19:00 07:00 Intake Total 480 ml 240 ml Balance 480 ml 240 ml Intake Oral 480 ml 240 ml # Voids 2 2 Height (Feet): 5 Height (Inches): 4.00 Weight (Pounds): 145 Josephine Blackwell MD Feb 01, 2018 12:02
[2018-02-01 16:00] VITALS: BP 134/85
[2018-02-01 20:00] VITALS: BP 139/82
[2018-02-02 04:00] VITALS: BP 136/88
[2018-02-02 05:50] LABS: ANION GAP 7 mmol/L (5-15); BLOOD UREA NITROGEN 28 mg/dL (7-18); CALCIUM 8.9 MG/DL (8.5-10.1); CARBON DIOXIDE 31 MMOL/L (21-32); CHLORIDE 104 MMOL/L (98-107); CREATININE 2.1 MG/DL (0.55-1.30); POTASSIUM 4.5 MMOL/L (3.5-5.1); SODIUM 142 MMOL/L (136-145)
[2018-02-02] MEDS: NovoLOG Insulin Flexpen SUBQ SCH ×5 (06:03→20:36)
[2018-02-02 08:00] VITALS: BP 138/83
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
[2018-02-02] MEDS: Thiamine 100mg tab ORAL SCH (08:59)
[2018-02-02] MEDS: Magnesium Oxide 400mg tab ORAL SCH ×3 (08:59→17:23)
--- NOTE | 2018-02-02 09:07 | Nephrology Progress Note ---
Assessment/Plan Assessment/Plan A/P 1) CKD 4- Cr 1.9-2 - renal function stable. Check BMP 2x week - encourage po fluids 2) DM- stable 3) Hypernatremia- resolved 4) Alcohol Dependancy- thiamine and folate Subjective Allergies: Coded Allergies: No Known Allergies (Unverified , 01/22/18) Subjective Patient stable. Awaiting DC to [facility] Objective Last 24 Hour Vital Signs Date Time Temp Pulse Resp B/P (MAP) Pulse Ox O2 Delivery O2 Flow Rate FiO2 02/02/18 04:00 97.0 80 19 136/88 (104) 98 97.0 02/01/18 21:00 Room Air 02/01/18 20:00 97.3 76 19 139/82 (101) 98 97.3 02/01/18 16:00 97.5 95 19 134/85 (101) 100 97.5 02/01/18 12:00 97.2 82 18 141/85 (103) 98 97.2 Intake and Output 02/01/18 02/02/18 19:00 07:00 Intake Total 600 ml 450 ml Balance 600 ml 450 ml Intake Oral 600 ml 450 ml # Voids 3 3 Laboratory Tests 02/02/18 04:32: Sodium Level 142, Potassium Level 4.5, Chloride Level 104, Carbon Dioxide Level 31, Anion Gap 7, Blood Urea Nitrogen 28H, Creatinine 2.1H, Estimat Glomerular Filtration Rate 32.8, Glucose Level 271H, Calcium Level 8.9 Height (Feet): 5 Height (Inches): 4.00 Weight (Pounds): 145 Aleksey Oconnor MD Feb 02, 2018 09:07
[2018-02-02 12:00] VITALS: BP 136/83
--- NOTE | 2018-02-02 14:11 | General Progress Note ---
Assessment/Plan Assessment/Plan encephalopathy due to alcohol Dementia the pt lacks capacity to leave ama seroquel 50mg tid the pt lacks capacity to leave ama seroquel prn Subjective Date patient seen: Feb 02, 2018 Neurologic/Psychiatric: Reports: anxiety, depressed, emotional problems Allergies: Coded Allergies: No Known Allergies (Unverified , 01/22/18) Subjective the pt is confused and more agitated Objective Last 24 Hour Vital Signs Date Time Temp Pulse Resp B/P (MAP) Pulse Ox O2 Delivery O2 Flow Rate FiO2 02/02/18 09:00 Room Air 02/02/18 08:00 97.3 87 19 138/83 (101) 100 97.3 02/02/18 04:00 97.0 80 19 136/88 (104) 98 97.0 02/01/18 21:00 Room Air 02/01/18 20:00 97.3 76 19 139/82 (101) 98 97.3 02/01/18 16:00 97.5 95 19 134/85 (101) 100 97.5 Intake and Output 02/01/18 02/02/18 19:00 07:00 Intake Total 600 ml 450 ml Balance 600 ml 450 ml Intake Oral 600 ml 450 ml # Voids 3 3 Laboratory Tests 02/02/18 04:32: Sodium Level 142, Potassium Level 4.5, Chloride Level 104, Carbon Dioxide Level 31, Anion Gap 7, Blood Urea Nitrogen 28H, Creatinine 2.1H, Estimat Glomerular Filtration Rate 32.8, Glucose Level 271H, Calcium Level 8.9 Height (Feet): 5 Height (Inches): 4.00 Weight (Pounds): 145 General Appearance: no apparent distress, alert, confused Josephine Blackwell MD Feb 02, 2018 14:11
[2018-02-02 16:00] VITALS: BP 125/71
[2018-02-02] MEDS: DiphenhydrAMINE 50mg/ml Inj IM PRN (18:22)
[2018-02-02] MEDS: LORazepam Inj 2mg/ml 1ml IM PRN (18:24)
[2018-02-02 20:00] VITALS: BP 125/73
[2018-02-03] VITALS: BP 157/80
[2018-02-03 04:00] VITALS: BP 121/67
[2018-02-03] MEDS: NovoLOG Insulin Flexpen SUBQ SCH ×4 (06:02→20:54)
[2018-02-03 08:00] VITALS: BP 131/81
[2018-02-03] MEDS: Magnesium Oxide 400mg tab ORAL SCH ×3 (08:36→17:12)
[2018-02-03] MEDS: LORazepam Inj 2mg/ml 1ml IM PRN ×2 (08:36→23:59)
[2018-02-03] MEDS: Thiamine 100mg tab ORAL SCH (08:37)
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
[2018-02-03 11:09] LABS: ANION GAP 4 mmol/L (5-15); BLOOD UREA NITROGEN 25 mg/dL (7-18); CALCIUM 8.9 MG/DL (8.5-10.1); CARBON DIOXIDE 32 MMOL/L (21-32); CHLORIDE 103 MMOL/L (98-107); CREATININE 2.2 MG/DL (0.55-1.30); POTASSIUM 4.3 MMOL/L (3.5-5.1); SODIUM 139 MMOL/L (136-145)
[2018-02-03 12:00] VITALS: BP 143/93
[2018-02-03 15:51] VITALS: BP 153/95
[2018-02-03] MEDS: Docusate 100mg/10ml Liq ORAL SCH ×2 (17:12→20:46)
[2018-02-03 20:00] VITALS: BP 142/75
[2018-02-04] VITALS: BP 147/80
[2018-02-04] MEDS: DiphenhydrAMINE 50mg/ml Inj IM PRN (00:15)
[2018-02-04 04:00] VITALS: BP 145/85
[2018-02-04] MEDS: NovoLOG Insulin Flexpen SUBQ SCH ×4 (06:14→20:09)
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
[2018-02-04 08:00] VITALS: BP 103/69
--- NOTE | 2018-02-04 08:30 | Nephrology Progress Note ---
Assessment/Plan Assessment/Plan A/P 1) CKD 4- Cr at 2.2 - fluid bolus today - encourage po fluids 2) DM- stable 3) Hypernatremia- resolved 4) Alcohol Dependancy- thiamine and folate Subjective Date patient seen: Feb 04, 2018 Time patient seen: 08:28 ROS Limited/Unobtainable: Yes Allergies: Coded Allergies: No Known Allergies (Unverified , 01/22/18) Subjective Awaiting DC to [facility] Objective Last 24 Hour Vital Signs Date Time Temp Pulse Resp B/P (MAP) Pulse Ox O2 Delivery O2 Flow Rate FiO2 02/04/18 04:00 97.8 93 17 145/85 (105) 93 97.8 02/04/18 00:00 98.7 90 16 147/80 (102) 94 98.7 02/03/18 21:00 Room Air 02/03/18 21:00 Room Air 02/03/18 20:00 98.9 98.9 02/03/18 20:00 87 18 142/75 (97) 93 02/03/18 15:51 97.4 87 19 153/95 (114) 99 97.4 02/03/18 12:00 97.1 85 20 143/93 (110) 96 97.1 02/03/18 09:00 Room Air Intake and Output 02/03/18 02/04/18 19:00 07:00 Intake Total 480 ml 120 ml Balance 480 ml 120 ml Intake Oral 480 ml 120 ml # Voids 4 9 Laboratory Tests 02/03/18 09:45: Sodium Level 139, Potassium Level 4.3, Chloride Level 103, Carbon Dioxide Level 32, Anion Gap 4L, Blood Urea Nitrogen 25H, Creatinine 2.2H, Estimat Glomerular Filtration Rate 31.1, Glucose Level 338H, Calcium Level 8.9 Height (Feet): 5 Height (Inches): 4.00 Weight (Pounds): 145 Aleksey Oconnor MD Feb 04, 2018 08:30
[2018-02-04] MEDS: Docusate 100mg/10ml Liq ORAL SCH ×2 (09:32→17:27)
[2018-02-04] MEDS: Thiamine 100mg tab ORAL SCH (09:33)
[2018-02-04] MEDS: Magnesium Oxide 400mg tab ORAL SCH ×3 (09:33→17:27)
[2018-02-04 12:00] VITALS: BP 101/72
[2018-02-04 15:50] VITALS: BP 106/70
[2018-02-04 20:00] VITALS: BP 129/74
[2018-02-05] VITALS: BP 146/77
[2018-02-05] MEDS: LORazepam Inj 2mg/ml 1ml IM PRN ×2 (02:21→15:46)
[2018-02-05 04:00] VITALS: BP 132/75
[2018-02-05] MEDS: NovoLOG Insulin Flexpen SUBQ SCH ×4 (06:21→20:40)
[2018-02-05 06:35] LABS: ANION GAP 7 mmol/L (5-15); BLOOD UREA NITROGEN 28 mg/dL (7-18); CALCIUM 8.9 MG/DL (8.5-10.1); CARBON DIOXIDE 28 MMOL/L (21-32); CHLORIDE 108 MMOL/L (98-107); CREATININE 2.2 MG/DL (0.55-1.30); SODIUM 143 MMOL/L (136-145)
[2018-02-05 08:00] VITALS: BP 110/54
[2018-02-05] MEDS: Docusate 100mg/10ml Liq ORAL SCH ×2 (08:21→17:54)
[2018-02-05] MEDS: Thiamine 100mg tab ORAL SCH (08:21)
[2018-02-05] MEDS: Magnesium Oxide 400mg tab ORAL SCH ×3 (08:22→17:54)
--- NOTE | 2018-02-05 08:31 | Nephrology Progress Note ---
Assessment/Plan Assessment/Plan A/P 1) CKD 4- Cr stable at 2.2 - avoid hypotensive events 2) DM- stable 3) Hypernatremia- resolved 4) Hypotension- PRN IV fluid bolus Subjective Date patient seen: Feb 05, 2018 Time patient seen: 08:24 ROS Limited/Unobtainable: No Allergies: Coded Allergies: No Known Allergies (Unverified , 01/22/18) All Systems: reviewed and negative except above Subjective Awaiting DC. Resting and not agitated Objective Last 24 Hour Vital Signs Date Time Temp Pulse Resp B/P (MAP) Pulse Ox O2 Delivery O2 Flow Rate FiO2 02/05/18 04:00 97.6 78 16 132/75 (94) 100 97.6 02/05/18 00:00 98.0 86 17 146/77 (100) 98 98.0 02/04/18 21:00 Room Air 02/04/18 20:00 98.4 80 21 129/74 (92) 98 98.4 02/04/18 15:50 98.1 98 18 106/70 (82) 95 98.1 02/04/18 12:00 97.8 102 17 101/72 (82) 94 97.8 02/04/18 09:00 Room Air Intake and Output 02/04/18 02/05/18 19:00 07:00 Intake Total 1800 ml Output Total 500 ml Balance 1800 ml -500 ml Intake Oral 800 ml IV Total 1000 ml Output Urine Total 500 ml # Voids 3 3 Laboratory Tests 02/05/18 05:35: Sodium Level 143, Potassium Level 4.0, Chloride Level 108H, Carbon Dioxide Level 28, Anion Gap 7, Blood Urea Nitrogen 28H, Creatinine 2.2H, Estimat Glomerular Filtration Rate 31.1, Glucose Level 154H, Calcium Level 8.9 Height (Feet): 5 Height (Inches): 4.00 Weight (Pounds): 145 General Appearance: WD/WN EENT: normal ENT inspection Neck: normal alignment, supple Cardiovascular: normal rate, regular rhythm Respiratory/Chest: lungs clear, normal breath sounds Abdomen: non tender, soft Edema: no edema noted Arm (L), no edema noted Arm (R), no edema noted Leg (L), no edema noted Leg (R), no edema noted Pedal (L), no edema noted Pedal (R), no edema noted Generalized De Trudy,Aleksey MD Feb 05, 2018 08:31
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
[2018-02-05 12:00] VITALS: BP 138/76
[2018-02-05] MEDS: DiphenhydrAMINE 50mg/ml Inj IM PRN (15:46)
[2018-02-05 16:00] VITALS: BP 136/80
--- NOTE | 2018-02-05 16:09 | General Progress Note ---
Assessment/Plan Status: stable Assessment/Plan encephalopathy due to alcohol Dementia the pt lacks capacity to leave ama seroquel 75mg qhs seroquel 25mg qam the pt lacks capacity to leave ama seroquel prn Subjective Date patient seen: Feb 05, 2018 Neurologic/Psychiatric: Reports: anxiety, depressed, emotional problems Allergies: Coded Allergies: No Known Allergies (Unverified , 01/22/18) Subjective the pt is confused calmer Objective Last 24 Hour Vital Signs Date Time Temp Pulse Resp B/P (MAP) Pulse Ox O2 Delivery O2 Flow Rate FiO2 02/05/18 12:00 97.7 75 19 138/76 (96) 95 97.7 02/05/18 09:00 Room Air 02/05/18 08:00 97.0 80 18 110/54 (72) 96 97.0 02/05/18 08:00 97.0 80 18 110/54 (72) 96 97.0 02/05/18 04:00 97.6 78 16 132/75 (94) 100 97.6 02/05/18 00:00 98.0 86 17 146/77 (100) 98 98.0 02/04/18 21:00 Room Air 02/04/18 20:00 98.4 80 21 129/74 (92) 98 98.4 Intake and Output 02/04/18 02/05/18 19:00 07:00 Intake Total 1800 ml Output Total 500 ml Balance 1800 ml -500 ml Intake Oral 800 ml IV Total 1000 ml Output Urine Total 500 ml # Voids 3 3 Laboratory Tests 02/05/18 05:35: Sodium Level 143, Potassium Level 4.0, Chloride Level 108H, Carbon Dioxide Level 28, Anion Gap 7, Blood Urea Nitrogen 28H, Creatinine 2.2H, Estimat Glomerular Filtration Rate 31.1, Glucose Level 154H, Calcium Level 8.9 Height (Feet): 5 Height (Inches): 4.00 Weight (Pounds): 145 General Appearance: no apparent distress, alert, confused Josephine Blackwell MD Feb 05, 2018 16:09
[2018-02-05 20:00] VITALS: BP 135/77
[2018-02-06 04:00] VITALS: BP 127/73
[2018-02-06] MEDS: NovoLOG Insulin Flexpen SUBQ SCH ×4 (05:58→19:51)
[2018-02-06 08:00] VITALS: BP 144/88
[2018-02-06] MEDS: Docusate 100mg/10ml Liq ORAL SCH ×2 (08:29→17:33)
[2018-02-06] MEDS: Magnesium Oxide 400mg tab ORAL SCH ×3 (08:30→17:36)
[2018-02-06] MEDS: Thiamine 100mg tab ORAL SCH (08:30)
[2018-02-06 12:00] VITALS: BP 113/74
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
--- NOTE | 2018-02-06 13:29 | Diagnostic Imaging Report ---
Indication: Cough Comparison: None A single view chest radiograph was obtained. Findings: No definite infiltrate or pulmonary vascular congestion identified. The heart is borderline enlarged. The aorta is borderline enlarged suggestive of atherosclerotic vascular disease. The bones are unremarkable. Impression: No acute disease
[2018-02-06 16:45] VITALS: BP 107/72
--- NOTE | 2018-02-06 19:40 | General Progress Note ---
Assessment/Plan Status: stable, progressing Assessment/Plan encephalopathy due to alcohol Dementia the pt lacks capacity to leave ama seroquel 75mg qhs seroquel 25mg qam the pt lacks capacity to leave ama seroquel prn Subjective Date patient seen: Feb 06, 2018 Neurologic/Psychiatric: Reports: anxiety, depressed, emotional problems Allergies: Coded Allergies: No Known Allergies (Unverified , 01/22/18) Subjective the pt is confused calmer Objective Last 24 Hour Vital Signs Date Time Temp Pulse Resp B/P (MAP) Pulse Ox O2 Delivery O2 Flow Rate FiO2 02/06/18 16:45 97.9 77 20 107/72 (84) 97 97.9 02/06/18 12:00 97.5 76 20 113/74 (87) 98 97.5 02/06/18 08:30 Room Air 02/06/18 08:00 98.2 70 20 144/88 (106) 97 98.2 02/06/18 04:00 97.2 78 20 127/73 (91) 98 97.2 02/05/18 21:08 Room Air 02/05/18 20:00 97.2 79 21 135/77 (96) 97 97.2 Intake and Output 02/05/18 02/06/18 19:00 07:00 Intake Total 1000 ml Balance 1000 ml Intake Oral 1000 ml # Voids 4 3 # Bowel Movements 2 2 Height (Feet): 5 Height (Inches): 4.00 Weight (Pounds): 145 General Appearance: no apparent distress, alert, confused Josephine Blackwell MD Feb 06, 2018 19:40
[2018-02-06] MEDS: LORazepam Inj 2mg/ml 1ml IM PRN (23:03)
[2018-02-06] MEDS: DiphenhydrAMINE 50mg/ml Inj IM PRN (23:03)
[2018-02-07 00:13] VITALS: BP 128/86
[2018-02-07 04:00] VITALS: BP 149/86
[2018-02-07] MEDS: NovoLOG Insulin Flexpen SUBQ SCH ×4 (05:47→21:42)
--- NOTE | 2018-02-07 08:22 | Nephrology Progress Note ---
Assessment/Plan Assessment/Plan A/P 1) CKD 4- Cr 1.8-2.2 - AM labs collected and pending 2) DM- stable 3) Hypernatremia- resolved. AM labs pending 4) Hypotension- PRN IV fluid bolus Subjective Allergies: Coded Allergies: No Known Allergies (Unverified , 01/22/18) Subjective Patient sleeping resting well Objective Last 24 Hour Vital Signs Date Time Temp Pulse Resp B/P (MAP) Pulse Ox O2 Delivery O2 Flow Rate FiO2 02/07/18 04:00 97.3 79 17 149/86 (107) 100 97.3 02/07/18 00:13 96.0 93 18 128/86 (100) 95 96.0 02/06/18 20:36 Room Air 02/06/18 16:45 97.9 77 20 107/72 (84) 97 97.9 02/06/18 12:00 97.5 76 20 113/74 (87) 98 97.5 02/06/18 08:30 Room Air Intake and Output 02/06/18 02/07/18 19:00 07:00 Intake Total 600 ml Balance 600 ml Intake Oral 600 ml # Voids 3 3 # Bowel Movements 1 1 Height (Feet): 5 Height (Inches): 4.00 Weight (Pounds): 132 Aleksey Oconnor MD Feb 07, 2018 08:22
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
[2018-02-07] MEDS: Thiamine 100mg tab ORAL SCH (10:09)
[2018-02-07] MEDS: Magnesium Oxide 400mg tab ORAL SCH ×3 (10:09→18:00)
[2018-02-07] MEDS: Docusate 100mg/10ml Liq ORAL SCH (10:09)
[2018-02-07 11:10] LABS: ANION GAP 9 mmol/L (5-15); BLOOD UREA NITROGEN 23 mg/dL (7-18); CALCIUM 8.8 MG/DL (8.5-10.1); CARBON DIOXIDE 29 MMOL/L (21-32); CHLORIDE 103 MMOL/L (98-107); CREATININE 2.2 MG/DL (0.55-1.30); POTASSIUM 3.7 MMOL/L (3.5-5.1); SODIUM 141 MMOL/L (136-145)
[2018-02-07 16:00] VITALS: BP 141/95
[2018-02-07] MEDS: Docusate 100mg cap ORAL SCH (18:00)
[2018-02-07] MEDS: DiphenhydrAMINE 50mg/ml Inj IM PRN (18:01)
[2018-02-07] MEDS: LORazepam Inj 2mg/ml 1ml IM PRN (18:01)
[2018-02-07 20:00] VITALS: BP 124/70
--- NOTE | 2018-02-07 20:02 | General Progress Note ---
Assessment/Plan Assessment/Plan encephalopathy due to alcohol Dementia the pt lacks capacity to leave ama seroquel 75mg qhs seroquel 25mg qam the pt lacks capacity to leave ama seroquel prn Subjective Date patient seen: Feb 07, 2018 Neurologic/Psychiatric: Reports: anxiety, depressed, emotional problems Allergies: Coded Allergies: No Known Allergies (Unverified , 01/22/18) Subjective the pt is confused calmer Objective Last 24 Hour Vital Signs Date Time Temp Pulse Resp B/P (MAP) Pulse Ox O2 Delivery O2 Flow Rate FiO2 02/07/18 16:00 98.0 84 19 141/95 (110) 99 98.0 02/07/18 08:00 Room Air 02/07/18 04:00 97.3 79 17 149/86 (107) 100 97.3 02/07/18 00:13 96.0 93 18 128/86 (100) 95 96.0 02/06/18 20:36 Room Air Intake and Output 02/06/18 02/07/18 19:00 07:00 Intake Total 600 ml Balance 600 ml Intake Oral 600 ml # Voids 3 3 # Bowel Movements 1 1 Laboratory Tests 02/07/18 09:45: Sodium Level 141, Potassium Level 3.7, Chloride Level 103, Carbon Dioxide Level 29, Anion Gap 9, Blood Urea Nitrogen 23H, Creatinine 2.2H, Estimat Glomerular Filtration Rate 31.1, Glucose Level 253H, Calcium Level 8.8 Height (Feet): 5 Height (Inches): 4.00 Weight (Pounds): 132 Josephine Blackwell MD Feb 07, 2018 20:02
[2018-02-08] VITALS: BP 120/78
[2018-02-08 04:00] VITALS: BP 120/68
[2018-02-08] MEDS: NovoLOG Insulin Flexpen SUBQ SCH ×2 (06:29→12:19)
[2018-02-08 07:50] VITALS: BP 120/70
[2018-02-08] MEDS: Magnesium Oxide 400mg tab ORAL SCH ×2 (09:18→12:18)
[2018-02-08] MEDS: Docusate 100mg cap ORAL SCH (09:18)
[2018-02-08] MEDS: Thiamine 100mg tab ORAL SCH (09:18)
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
--- NOTE | 2018-02-08 10:12 | General Progress Note ---
Assessment/Plan Status: stable Assessment/Plan encephalopathy due to alcohol Dementia the pt lacks capacity to leave ama Seroquel 75mg qhs Seroquel 25mg bid the pt lacks capacity to leave ama dc sitter soft restraints Seroquel prn Subjective Neurologic/Psychiatric: Reports: anxiety, depressed Allergies: Coded Allergies: No Known Allergies (Unverified , 01/22/18) Subjective the pt is confused was asleep has episodes of agitation Objective Last 24 Hour Vital Signs Date Time Temp Pulse Resp B/P (MAP) Pulse Ox O2 Delivery O2 Flow Rate FiO2 02/08/18 09:00 Room Air 02/08/18 07:50 97.5 85 18 120/70 (87) 97 97.5 02/08/18 04:00 97.3 72 18 120/68 (85) 96 97.3 02/08/18 00:00 98.1 70 18 120/78 (92) 96 98.1 02/07/18 21:00 Room Air 02/07/18 20:00 98.0 90 19 124/70 (88) 94 98.0 02/07/18 16:00 98.0 84 19 141/95 (110) 99 98.0 Intake and Output 02/07/18 02/08/18 19:00 07:00 Intake Total 500 ml 450 ml Balance 500 ml 450 ml Intake Oral 500 ml Other 450 ml # Voids 2 4 Height (Feet): 5 Height (Inches): 4.00 Weight (Pounds): 132 General Appearance: no apparent distress, alert, confused Neurologic: depressed affect Josephine Blackwell MD Feb 08, 2018 10:12
[2018-02-08] MEDS ORDERED: CLONIDINE HCL0.1 MG PO (11:24)
[2018-02-08] MEDS ORDERED: BENADRYL50 MG/ML IM (11:26)
[2018-02-08] MEDS ORDERED: FOLIC ACID1 M1 PO (11:27)
[2018-02-08] MEDS ORDERED: NOVOLOG100 UNITS1 (11:27)
[2018-02-08] MEDS ORDERED: DOCUSATE SODIU100 M2 ORAL (11:27)
[2018-02-08] MEDS ORDERED: MAGNESIUM OXID400 M1 ORAL (11:28)
[2018-02-08] MEDS ORDERED: ATIVAN2 MG/ML IM (11:28)
[2018-02-08] MEDS ORDERED: SEROQUEL50 MG ORAL ×3 (11:29→11:30)
[2018-02-08] MEDS ORDERED: VITAMIN B-1100 M2 PO (11:30)
[2018-02-08 12:00] VITALS: BP 132/80
--- NOTE | 2018-02-08 13:28 | Diagnostic Imaging Report ---
Indications: Reason For Exam: DYSPHAGIA Technique: Patient ingested multiple substances under the supervision of speech pathology. Video fluoroscopic recording performed. Total fluoroscopy time 301 seconds. Total dose area product 0.06956 mGycm2. Total number fluoroscopic runs: 12 Comparison: none Findings: Aspiration of thin liquid barium is demonstrated, resulting in coughing. Multiple episodes of laryngeal penetration also demonstrated with ingestion of thin liquid barium. With ingestion of nectar thick liquid barium, there is trace laryngeal penetration, no aspiration. Early pooling of substances is noted. No significant delayed pooling. No aspiration or penetration of honey thick liquid barium or barium puree Impression: Positive for aspiration of thin liquid barium and penetration of nectar thick liquid barium, as described Please refer to speech pathology report for more detailed analysis
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
== END 2018-02-08 15:30 | DRG 469 ==
LOC: EDBD 15:35 → EMR 16:04 → 2E 18:15 → EDBEDREQ 18:48 → 4E 01-24 11:00
DX: N17.9 Acute kidney failure, unspecified (principal); E11.22 Type 2 diabetes mellitus with diabetic chronic kidney disease; I95.9 Hypotension, unspecified; E11.65 Type 2 diabetes mellitus with hyperglycemia; G31.2 Degeneration of nervous system due to alcohol; E87.0 Hyperosmolality and hypernatremia; E83.42 Hypomagnesemia; I12.9 Hypertensive chronic kidney disease with stage 1 through stage 4 chronic kidney disease, or unspecified chronic kidney disease; N18.4 Chronic kidney disease, stage 4 (severe); Z59.0 Homelessness; F10.229 Alcohol dependence with intoxication, unspecified; F03.90 Unspecified dementia, unspecified severity, without behavioral disturbance, psychotic disturbance, mood disturbance, and anxiety
CPT/HCPCS: 36415; 36600; 70450; 71045; 74230; 76770; 80048; 80053; 80329; 81003; 82009; 82803; 82962; 83735; 84100; 85007; 85025; 87081; 93005; 99285; J1815; J2405